=== PATIENT | female | born 1960 | race Caucasian/White ===

== ENCOUNTER 2017-08-12 06:36 | Day surgery (SDC) | payer BC ==
[2017-08-12] MEDS ORDERED: Lidocaine 1% with EPINEPHrine 1:100,000 50 ML MDV ONE (06:57)
[2017-08-12] MEDS ORDERED: Sodium Tetradecyl Sulfate 1% 20 MG/2 ML SDV ONE (06:57)
[2017-08-12] MEDS ORDERED: Sodium Chloride 0.9% 10 ML ONE (06:57)
[2017-08-12] MEDS ORDERED: Sodium Chloride 0.9% 1,000 ML IV SCH (07:00)
[2017-08-12] MEDS ORDERED: fentaNYL 100 MCG/2 ML SDV ONE (07:12)
[2017-08-12] MEDS ORDERED: Propofol 200 MG/20 ML SDV ONE ×2 (07:12→08:09)
[2017-08-12] MEDS ORDERED: Midazolam 1 MG/ML 2 ML SDV ONE (07:12)
[2017-08-12] MEDS ORDERED: Lidocaine 1% w/EPINEPHrine 50 ML, Sodium Bicarbonate 5 MEQ in Sodium Chloride 0.9% 950 ML INJECT ONE ×2 (07:45→08:45)
[2017-08-12 09:49] VITALS: BP 137/87
--- NOTE | 2017-08-12 11:13 | OR ---
DATE OF PROCEDURE: 08/12/2017 PROCEDURES: 1. Radiofrequency ablation of left greater saphenous vein. 2. Radiofrequency ablation of left anterior accessory vein. 3. Radiofrequency ablation of right anterior accessory vein. 4. Sclerotherapy of left leg, multiple. 5. Sclerotherapy of right leg, multiple. 6. Compression wrapping, left leg (17053). 7. Compression wrapping, right leg (89006). COMPLICATIONS: None. 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 ANESTHESIA: MAC. RISKS: Risks, benefits, alternatives, and limitations including, but not limited to infection, bleeding, and DVT formation were explained to the patient, and she wished to proceed. PREOPERATIVE DIAGNOSIS: Venous insufficiency. POSTOPERATIVE DIAGNOSIS: Venous insufficiency. DESCRIPTION OF PROCEDURE: The patient was placed in supine position. The left anterior accessory vein was accessed first. This would be addressed by using the 11 megahertz probe, anesthetizing with lidocaine. A single sandee was created in the skin. The radiofrequency ablation was performed in 4 serial segments. After this was introduced, tumescent fluid was injected in 1-cm jacket around this, and this was ablated and filled. Impedance spiked greater than the recommended allotment. This was no more than 2 minutes and never more than 1.8 moreno. Once this was performed, the device was removed and Dermabond was applied to the incision sites. Ablation was then continued of the greater saphenous vein along with the anterior accessory vein on the left and the greater saphenous vein on the right. This was all ablated in the same manner, same fashion, same technique, in the same sequence, and using the same equipment. Sclerotherapy was then performed on left and right legs using 0.33% sodium tetradecyl. This was 6 on the right and 8 on the left. There was no more than 2 mL injected in one location. Needle was always drawn back to ensure intravascular injection only. Compression wrapping was then performed of left and right legs using two-layer two-stage compression. This was started distal to proximal. The patient tolerated the procedure well. Tino Mar MD /[id number]
== END 2017-08-12 10:10 | disposition home or self-care (01) ==
LOC: JP.SDS 06:36
PROVIDERS: ATTEND Surgery
DX: I87.2 Venous insufficiency (chronic) (peripheral) (principal)
CPT/HCPCS: 36471; 36475; 36476; J1642; J2250; J2704; J3010; J7040; J7050; J3490

== ENCOUNTER 2025-05-26 09:11 | Emergency (ER) | payer BC ==
[2025-05-26 09:40] LABS: APPEARANCE,URINE SLIGHTLY CLOUDY (CLEAR); GLUCOSE,URINE NEGATIVE (NEGATIVE); OCCULT BLOOD,URINE TRACE-LYSED (NEGATIVE)
[2025-05-26 09:49] LABS: SQUAMOUS EPITHELIAL CELLS,UR MANY /HPF
[2025-05-26 09:50] VITALS: BP 172/65; PULSE 77
== END 2025-05-26 10:32 | disposition home or self-care (01) ==
LOC: JP.ED 09:11
DX: N39.0 Urinary tract infection, site not specified (principal); E03.9 Hypothyroidism, unspecified; E66.9 Obesity, unspecified; Z90.710 Acquired absence of both cervix and uterus; Z90.49 Acquired absence of other specified parts of digestive tract; Z79.899 Other long term (current) drug therapy; Z79.890 Hormone replacement therapy; Z91.013 Allergy to seafood; Z88.2 Allergy status to sulfonamides; Z68.42 Body mass index [BMI] 45.0-49.9, adult
CPT/HCPCS: 81001; 99284